=== PATIENT | male | born 1945 | race Hispanic/Latino ===

== ENCOUNTER → 2025-04-11 | Day surgery (SDC) | payer MEDICARE ==
[2025-04-01 11:55] LABS: BASOPHILS % 0.7 % (0.0-1.0); EOSINOPHILS % 3.1 % (0.0-6.0); LYMPHOCYTES % 26.3 % (18.0-39.1); MONOCYTES % 8.2 % (4.4-11.3); NEUTROPHILS % 61.5 % (38.7-80.0); RED CELL DISTRIBUTION WIDTH 14.6 % (11.7-14.4)
[2025-04-01 12:23] LABS: INR 1.09
[2025-04-01 12:33] LABS: EST GLOMERULAR FILTRATION RATE 34.0 ML/MIN (>=60)
[~2025-04-11] MED LIST: B-125000 MCG/1; CRESTOR40 MG; FENTANYL CITRATE/PF 100MCG/2 ML INJ ONE; FLOMAX0.4 MG PO; GEMTESA75 MG PO; GLYCOPYRROLATE INJ 0.2 MG/ML VIAL ONE; ICOSAPENT ETHYL1 GM PO; JARDIANCE25 MG PO; LIDOCAINE HCL 2% LOCAL INJ 5 ML SDV VIAL INJ ONE; LISINOPRIL2.5 MG PO; METOPROLOL SUCC25 MG PO; OZEMPIC0.25 MG/02; PEPCID20 MG PO; PROPOFOL IV EMULSION 10 MG/ML 20 ML VIAL ONE; SODIUM BICARBO650 MG PO; STOOL SOFTENER100 M1 PO; TIZANIDINE HCL4 MG PO; ZETIA10 MG PO
[2025-04-11] MEDS: LACTATED RINGER'S 1,000 ML ONE (05:56)
[2025-04-11 07:20] VITALS: TEMP 97.4
[2025-04-11 07:45] VITALS: BP 125/78; PULSE 67; RESP 16; O2SAT 97
== END | disposition home or self-care (01) ==
LOC: OR 05:28
PROVIDERS: ATTEND Internal Medicine Gastroenterology
DX: Z12.11 Encounter for screening for malignant neoplasm of colon (principal); D12.3 Benign neoplasm of transverse colon; K29.50 Unspecified chronic gastritis without bleeding; K31.A11 Gastric intestinal metaplasia without dysplasia, involving the antrum; K21.9 Gastro-esophageal reflux disease without esophagitis; K44.9 Diaphragmatic hernia without obstruction or gangrene; K57.30 Diverticulosis of large intestine without perforation or abscess without bleeding; K64.8 Other hemorrhoids; D64.9 Anemia, unspecified; E11.22 Type 2 diabetes mellitus with diabetic chronic kidney disease; I12.9 Hypertensive chronic kidney disease with stage 1 through stage 4 chronic kidney disease, or unspecified chronic kidney disease; N18.30 Chronic kidney disease, stage 3 unspecified; I45.10 Unspecified right bundle-branch block; I25.810 Atherosclerosis of coronary artery bypass graft(s) without angina pectoris; E78.5 Hyperlipidemia, unspecified; I72.2 Aneurysm of renal artery; Z01.810 Encounter for preprocedural cardiovascular examination; Z01.812 Encounter for preprocedural laboratory examination; Z79.84 Long term (current) use of oral hypoglycemic drugs; Z79.85 Long-term (current) use of injectable non-insulin antidiabetic drugs; Z79.899 Other long term (current) drug therapy; Z68.29 Body mass index [BMI] 29.0-29.9, adult; Z71.3 Dietary counseling and surveillance; Z85.46 Personal history of malignant neoplasm of prostate; Z95.1 Presence of aortocoronary bypass graft; Z87.891 Personal history of nicotine dependence
CPT/HCPCS: 36415 ×2; 43239; 45385; 80048; 82948; 85025; 85610; 85730; 88305; 88342; 93005; J2003; J2704; J3010; J7121